=== PATIENT | male | born 1985 | race Caucasian/White ===

== ENCOUNTER 2017-12-27 18:58 | Emergency (ER) | payer BC ==
[~2017-12-27] VITALS: Ht 170.2 cm; Wt 77.1 kg
[2017-12-27 19:02] VITALS: BP 129/81
--- NOTE | 2017-12-27 19:06 | NUR ---
PT TAKEN TO BED 2
--- NOTE | 2017-12-27 19:15 | NUR ---
pt bib self c/o laceration to rt index finger. no active bleeding at this time. pt states he was at work and cut his finger on metal, pt states he had tetnus shot "about 7 months ago". pt is sitting in bed, in no apparent distress, awake and acting appropriate. no pmh, nkda
--- NOTE | 2017-12-27 19:30 | NUR ---
Dr. Wilhelm evaluating patient at bedside.
[2017-12-27] MEDS ORDERED: BACITRACIN OINT 500 UNITS/GM PKT TP ONE (19:35)
[2017-12-27 19:40] VITALS: BP 129/81
--- NOTE | 2017-12-27 19:40 | NUR ---
Patient discharged with v/s stable. Written and verbal after care instructions given and explained. Patient alert, oriented and verbalized understanding of instructions. Ambulatory with steady gait. All questions addressed prior to discharge. ID band removed. Patient advised to follow up with PMD. Rx of MOTRIN AND NORCO given. Patient educated on indication of medication including possible reaction and side effects. Opportunity to ask questions provided and answered.
== END 2017-12-27 19:40 | disposition home or self-care (01) ==
LOC: MED 18:58
DX: S61.300A Unspecified open wound of right index finger with damage to nail, initial encounter (principal); W23.0XXA Caught, crushed, jammed, or pinched between moving objects, initial encounter; Y93.89 Activity, other specified; Y92.89 Other specified places as the place of occurrence of the external cause; Y99.8 Other external cause status
CPT/HCPCS: 99283